=== PATIENT | female | born 1945 | race Caucasian/White ===

== ENCOUNTER 2019-10-20 08:42 | Emergency (ER) | payer MEDICARE ==
[~2019-10-20] VITALS: Ht 162.5 cm; Wt 87.7 kg
[2019-10-20] MEDS ORDERED: LIDOCAINE 1% INJ 20 ML 20 ML VIAL INJ ONE (09:00)
--- NOTE | 2019-10-20 09:03 | ED Integumentary General ---
General Chief Complaint: Bite-Animal/Human/Insect Stated Complaint: DOG BITE;R THUMB Source: patient, other Exam Limitations: no limitations History of Present Illness Date Seen by Provider: Oct 20, 2019 Time Seen by Provider: 08:50 Initial Comments Patient arrives to the ER by private conveyance with her significant other and chief complaint that about 4 hours prior to arrival she was trying to fish a piece of plastic out of her dog's mouth and it bit her on the right thumb. She has a inch and a half long laceration with a little bit of fat coming out of it. She was able to get the bleeding to stop with direct pressure. She has ran clean water over her wound extensively. She has full range of motion of her hand and no numbness or tingling. She is not on any medications nor does she have any immunocompromising disease. She does not have diabetes, cancer etc. She follows with Dr. Choudhury for primary care. Her dog is up-to-date on vaccinations. She had a tetanus vaccination less than a year ago. Allergies and Home Medications Allergies Coded Allergies: No Known Drug Allergies (Unverified , 10/20/19) Home Medications No Active Prescriptions or Reported Meds Patient Home Medication List Home Medication List Reviewed: Yes Review of Systems Review of Systems Constitutional: No chills, No fever EENTM: No ear pain, No eye pain Respiratory: No cough, No phlegm Cardiovascular: No chest pain, No edema Gastrointestinal: No abdominal pain, No heartburn, No nausea, No vomiting Genitourinary: No discharge, No dysuria Musculoskeletal: No back pain, No joint pain Skin: see HPI Past Oiyaghn-Wvxyux-Ayjgvr Hx Patient Social History Alcohol Use: Denies Use Recreational Drug Use: No Smoking Status: Never a Smoker Recent Foreign Travel: No Contact w/Someone Who Travel: No Physical Exam Vital Signs Vital Signs - First Documented 10/20/19 08:47 Temp 36.6 Pulse 85 Resp 18 B/P (MAP) 172/107 (128) Pulse Ox 97 O2 Delivery Room Air Capillary Refill : General Appearance: WD/WN, no apparent distress HEENT: PERRL/EOMI, pharynx normal Neck: full range of motion, normal inspection Cardiovascular: normal peripheral pulses, regular rate, rhythm Respiratory: no respiratory distress, no accessory muscle use Extremities: normal range of motion, non-tender, normal inspection, normal capillary refill Neurologic/Psychiatric: no motor/sensory deficits, alert, normal mood/affect, oriented x 3 Skin: other (3 cm linear laceration into the subcutaneous tissue with exposed adipose on the palmar side of the thumb and right hand. Neurovascularly intact.) Procedures/Interventions Wound Location: Upper Extremities Other Wound Location Right thumb Wound Length (cm): 3 Wound's Depth, Shape: linear, sub Q Wound Explored: clean Irrigated w/ Saline (ccs): 50 Betadine Prep?: Yes (chlorhexidine and sterile saline) Anesthesia: 1% Lidocaine Volume Anesthetic (ccs): 3 Wound Debrided: minimal Suture: Prolene Suture Size: 5-0 Number of Sutures: 5 Layer Closure?: 1 Sterile Dressing Applied?: Yes Progress Wound was thoroughly cleaned and explored. Tendons were intact and her range of motion is complete. Sensation was intact. We did a digital block of her right thumb and then and started another half cc of 1% lidocaine in the wound to achieve good anesthesia. We reapproximated the edges and placed 5 simple interrupted sutures. Patient tolerated procedure well. Progress/Results/Core Measures Results/Orders My Orders Orders - SIN VILLA Finger(S) (10/20/19 08:58) Lidocaine 1% Inj 20 Ml (Xylocaine 1% Inj (10/20/19 09:00) Vital Signs/I&O 10/20/19 08:47 Temp 36.6 Pulse 85 Resp 18 B/P (MAP) 172/107 (128) Pulse Ox 97 O2 Delivery Room Air Progress Progress Note : Time: 09:02 Progress Note Plan to soak her hand and some chlorhexidine and sterile saline for about 10 minutes and obtain an x-ray of the fingers to rule out foreign body, fracture. We'll then closed with sutures and have her follow-up. Antibiotics Bactrim. Diagnostic Imaging Diagonstic Imaging: Xray Plain Films/CT/US/NM/MRI: hand (right) Comments No foreign debris or acute osseous fracture or other abnormality acutely noted. Reviewed: Reviewed by Me Departure Impression Primary Impression: Dog bite Qualified Codes: W54.0XXA - Bitten by dog, initial encounter Additional Impression: Laceration Disposition: 01 HOME, SELF-CARE Condition: Stable Departure-Patient Inst. Decision time for Depature: 09:45 Referrals: BELEN CHOUDHURY MD (PCP) Primary Care Physician Patient Instructions: Laceration Repair With Stitches (DC) Add. Discharge Instructions: Return to the ER or your primary care doctor in 7-10 days to have the sutures removed. Keep the wound clean with regular soap and water. Vaseline or petroleum jelly applied a thin layer over the sutures to keep them from sticking to the dressing. Change the dressing daily or as often as it becomes soiled. If you have swelling and pain then elevate her hand above the level of your heart and do not use it. Tylenol and ibuprofen. Bactrim one tablet twice a day for the next 3 to 5 days. If you develop fever, discharge from the wound or extreme redness and swelling in her hand then you need to return to the doctor for examination promptly. All discharge instructions reviewed with patient and/or family. Voiced understanding. Scripts Sulfamethoxazole/Trimethoprim (Bactrim Ds Tablet) 1 Each Tablet 1 EACH PO BID for 5 Days, #10 TAB 0 Refills Prov: SIN VILLA 10/20/19 SIN VILLA Oct 20, 2019 09:03
--- NOTE | 2019-10-20 09:13 | NUR ---
CALLED HEALTH DEPT AND REPORT DOG BITE TALKED TO ALEXANDRA AT [facility]
--- NOTE | 2019-10-20 09:36 | Diagnostic Imaging Report ---
HISTORY: Dog bite to the 1st digit with laceration TECHNIQUE: Frontal view of the hand. The lateral and frontal views of the right thumb. COMPARISON: None FINDINGS: No acute fracture or dislocation is seen in the right hand. There are degenerative changes and mild ulnar deviation at the 3rd proximal interphalangeal joint. No cortical erosions are seen. Alignment otherwise appears normal. No radiopaque foreign body is seen. IMPRESSION: 1. No acute osseous abnormality or radio opaque foreign body seen in the right thumb. Dictated by: Dictated on workstation # [id number]
[2019-10-20] MEDS ORDERED: SULF1TAB35 PO (09:50)
[2019-10-20 09:57] VITALS: BP 172/100
== END 2019-10-20 09:56 | disposition home or self-care (01) ==
LOC: EDUNIT# 08:42 → ER 08:43
DX: S61.011A Laceration without foreign body of right thumb without damage to nail, initial encounter (principal); W54.0XXA Bitten by dog, initial encounter
CPT/HCPCS: 12042; 73140

== ENCOUNTER 2019-10-27 09:23 | Emergency (ER) | payer MEDICARE ==
[~2019-10-27] VITALS: Ht 162.6 cm; Wt 82.5 kg
[~2019-10-27 09:23] MED LIST: SULF1TAB35 PO
[2019-10-27 09:49] VITALS: BP 164/85
== END 2019-10-27 10:00 | disposition home or self-care (01) ==
LOC: EDUNIT# 09:23 → ER 09:24
DX: S61.011D Laceration without foreign body of right thumb without damage to nail, subsequent encounter (principal); W54.0XXD Bitten by dog, subsequent encounter

== ENCOUNTER 2022-10-15 10:15 | Emergency (ER) | payer MEDICARE ==
[~2022-10-15] VITALS: Ht 162.6 cm; Wt 90.7 kg
[~2022-10-15 10:15] MED LIST changes: -SULF1TAB35 PO; +SULF1TAB38 PO
--- NOTE | 2022-10-15 11:48 | ED GU-Female ---
General Chief Complaint: - Reproductive Stated Complaint: BULGE IN VAGINA Nursing Triage Note: PT AMB TO RM 8 W C/O "SOMETHING BULGING OUT OF VAGINA." PT REPORTS SHE WAS TAKING BATH THIS AM WHEN SHE NOTICED SOMETHING SMOOTH COMING OUT OF HER VAGINA, STATES SHE IS UNSURE HOW LONG IT HAS BEEN THERE. PT REPORTS SHE IS ABLE TO URINATE, DENIES PAIN. PT A&OX4. Source: patient Exam Limitations: no limitations History of Present Illness Date Seen by Provider: Oct 15, 2022 Time Seen by Provider: 11:53 Initial Comments This is 77-year-old woman presents to the emergency room with complaints of a bulging from the vaginal area. This had been noticed to a mild degree previously. Dr. MIGUEL had been consulted in the past and recommended observation until symptoms became more prominent. Today she noticed this more prominently to the extent it felt like it was bulging out of her vaginal opening. She denies any pain, dysuria, urinary hesitance, or other symptoms. She reports having a fall a few days ago and she wonders if this may have precipitated the more prominent bulging. She denies any injury aside from bruising on her knees. She has not seen Dr. MIGUEL for this problem since 2019. Allergies and Home Medications Allergies Coded Allergies: No Known Drug Allergies (Unverified , 10/20/19) Patient Home Medication List Home Medication List Reviewed: Yes Sulfamethoxazole/Trimethoprim (Bactrim Ds Tablet) 1 Each Tablet, 1 EACH PO BID Prescribed by: SIN VILLA on 10/20/19 0950 Review of Systems Review of Systems Constitutional: no symptoms reported Gastrointestinal: no symptoms reported Genitourinary: see HPI : No Skin: no symptoms reported Past Ktjolay-Gsgahl-Xjcdvu Hx Patient Social History Tobacco Use?: No Use of E-Cig and/or Vaping dev: No Substance use?: No Alcohol Use?: No Immunizations Up To Date Influenza Vaccine Up-to-Date: No; Not Current First/Initial COVID19 Vaccinat: 2020 Second COVID19 Vaccination Ramirez: 2020 Third COVID19 Vaccination Date: N/A COVID19 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 oz. kg; 34.00 BMI Method:Stated General Appearance: WD/WN, no apparent distress HEENT: normal ENT inspection Cardiovascular: regular rate, rhythm, no edema, no murmur Respiratory: lungs clear, normal breath sounds, no respiratory distress Gastrointestinal: non tender, soft; No distended Pelvic: normal external exam, other (Soft reducible nontender bulging of the anterior vaginal wall consistent with bladder prolapse) Extremities: normal inspection Neurologic/Psychiatric: alert, normal mood/affect, oriented x 3 Skin: normal color, warm/dry Procedures/Interventions Suture Size: 5-0 Progress/Results/Core Measures Suspected Sepsis SIRS Temperature: Pulse: 99 Respiratory Rate: 20 Blood Pressure 198 /113 Mean: 141 Results/Orders Vital Signs/I&O 10/15/22 10/15/22 10:22 11:56 Temp 36.4 36.4 Pulse 99 84 Resp 20 18 B/P (MAP) 198/113 (141) 161/94 Pulse Ox 96 97 O2 Delivery Room Air Room Air Capillary Refill : Less Than 3 Seconds Blood Pressure Mean: 141 Progress Note : Progress Note The bulging of the anterior vaginal wall is consistent with bladder prolapse. It was soft, nontender, and easily reducible. Follow-up with Dr. MIGUEL was recommended. See discharge instructions for further discussion. Departure Impression Primary Impression: Bladder prolapse Disposition: 01 HOME, SELF-CARE Condition: Stable Departure-Patient Inst. Decision time for Depature: 11:47 Referrals: BELEN CHOUDHURY MD (PCP/Family) Primary Care Physician Patient Instructions: Pelvic Organ Prolapse Add. Discharge Instructions: Call Dr. MIGUEL's office tomorrow morning to schedule follow-up. Return to the emergency room if you develop notable pain, difficulty urinating, or bulge that is not soft and reducible. Return to care if you have any other problems you believe need urgent evaluation. See the information packet attached. All discharge instructions reviewed with patient and/or family. Voiced understanding. Copy Copies To 1: KALEE MIGUEL MD Copies To 2: BELEN CHOUDHURY MD, JOSHUA T MD Oct 15, 2022 11:48
[2022-10-15 11:56] VITALS: BP 161/94
== END 2022-10-15 11:56 | disposition home or self-care (01) ==
LOC: EDUNIT# 10:15 → ER 10:18
DX: N81.10 Cystocele, unspecified (principal)
CPT/HCPCS: 99281